=== PATIENT | female | born 1970 | race Caucasian/White ===

== ENCOUNTER 2016-11-18 04:01 | Emergency (ER) | payer OTHER ==
--- NOTE | ~2016-11-18 | CR72 ---
[facility] A Service of [facility] RADIOLOGY TEXT RESULTS PATIENT: SHAKEEL STAPLETON LOCATION: SED : 68 UNIT #: [id number] AGE: [address]: Unruly Monroy MD SEX: F ORDER DR: [id number] [place] [address] [id number] E MR#: [id number] Acc #: [id number] NAME: SHAKEEL STAPLETON : 1970 SEX: F STUDY DATE/TIME: 11/18/2016 UNIT: SED ROOM: STUDY DESCRIPTION: CR Chest Single View Portable Attending Physician: Unruly Monroy M.D. Ordering Physician: Unruly Monroy M.D. Primary Care Physician: Ellyn Alfaro M.D. MEDICAL IMAGING REPORT This report is preliminary unless electronic signature is present. EXAM Portable chest 11/18 at 05:26 INDICATIONS Acute onset chest pain 1 hour ago. COMPARISON 07/13/2016 FINDINGS A single AP portable view of the chest shows both lungs to be clear. The heart is normal in size. The mediastinal contour is normal. No significant bone abnormalities are seen. IMPRESSION Normal portable chest. Dictated by... Thad Cates Jr., M.D. THIS IS AN ELECTRONICALLY VERIFIED REPORT Thad Cates Jr., M.D. at 11/19/2016 5:53 AM RLK/anil TD: 11/18/2016 08:07 JOB #: [id number] MEDICAL IMAGING REPORT [facility] A Service of [facility] RADIOLOGY TEXT RESULTS PATIENT: SHAKEEL STAPLETON LOCATION: SED : 68 UNIT #: [id number] AGE: [address]: Unruly Monroy MD SEX: F ORDER DR: Page 1 of 1
--- NOTE | ~2016-11-18 | EKG ---
PATIENT: SHAKEEL STAPLETON UNIT #: [id number] Ventricular Rate: 70 BPM Atrial Rate: 70 BPM P-R Interval: 136 ms QRS Duration: 98 ms Q-T Interval: 382 ms QTC Calculation(Bezet): 412 ms P [place]: 78 degrees Calculated R [place]: 37 degrees Calculated T [place]: 34 degrees Diagnosis Line: Normal sinus rhythm with sinus arrhythmia Diagnosis Line: Normal ECG Diagnosis Line: No previous ECGs available Diagnosis Line: Confirmed by ARNOL SHARP MD ([id number]) on 11/20/2016 Diagnosis Line: 10:20:20 AM INTERPRETING MD: LILA MCCOY
--- NOTE | ~2016-11-18 | CT2 ---
[facility] A Service of [facility] RADIOLOGY TEXT RESULTS PATIENT: SHAKEEL STAPLETON LOCATION: SED : 68 UNIT #: [id number] AGE: [address]: Unruly Monroy MD SEX: F ORDER DR: [id number] [place] [id number] E MR#: [id number] Acc #: [id number] NAME: SHAKEEL STAPLETON : 1970 SEX: F STUDY DATE/TIME: 11/18/2016 6:04 UNIT: SED ROOM: STUDY DESCRIPTION: CT Abd and Pelv W Cont Attending Physician: Unruly Monroy M.D. Ordering Physician: Unruly Monroy M.D. Primary Care Physician: Ellyn Alfaro M.D. MEDICAL IMAGING REPORT This report is preliminary unless electronic signature is present. EXAM CT abdomen and pelvis with contrast HISTORY 46-year-old female chest pain for 1 hour prior to admission. Took 4 nitroglycerin with no relief, now complains of abdominal pain right upper quadrant pain, diarrhea. COMPARISON CT abdomen and pelvis, 11/03/[address] exam was performed with one or more of the following radiation dose reduction techniques: automatic exposure control, adjustment of mA and/or kV according to patient size, and iterative reconstruction. FINDINGS Axial images performed through the abdomen and pelvis following IV contrast. Sagittal and coronal reconstructed images reviewed at a workstation. ABDOMEN: The lung bases are unremarkable. The liver and spleen appear normal. The gallbladder is contracted with multiple hyperdensities in the gallbladder compatible with stones. The pancreas, kidneys and adrenal glands are unremarkable. No free air or free fluid. Visualized GI tract, to include the appendix, unremarkable. Retroperitoneum unremarkable. PELVIS: The bladder is mildly distended. The uterus and adnexa unremarkable. Osseous structures appear normal. There is a small fat-containing umbilical hernia. IMPRESSION 1. No acute intraabdominal or intrapelvic pathology. [facility] A Service of [facility] RADIOLOGY TEXT RESULTS PATIENT: SHAKEEL STAPLETON LOCATION: SED : 68 UNIT #: [id number] AGE: [address]: Unruly Monroy MD SEX: F ORDER DR: 2. Uncomplicated cholelithiasis. Dictated by... Beatrice Nieves M.D. THIS IS AN ELECTRONICALLY VERIFIED REPORT Beatrice Nieves M.D. at 11/18/2016 3:31 PM HOLLEY/charlie TD: 11/18/2016 08:14 JOB #: [id number] MEDICAL IMAGING REPORT Page 1 of 1
[2016-11-18] MEDS ORDERED: LISINOPRIL PO (04:19)
[2016-11-18] MEDS ORDERED: VENLAFAXINE PO (04:20)
[2016-11-18] MEDS ORDERED: NITROGLYCERIN PO (04:20)
[2016-11-18 04:26] LABS: BASOPHIL# 0.2 X10e3 (0-0.3); BASOPHIL% 1.4 % (0-2.5); DIFF IND NO; EOSINOPHIL# 0.4 X10e3 (0-0.7); EOSINOPHIL% 3.6 % (0.0-7.0); HEMATOCRIT 39.6 % (35.0-45.0); HEMOGLOBIN 13.6 gm/dL (12.0-16.0); LYMPHOCYTE# 3.5 X10e3 (1.0-3.5); LYMPHOCYTE% 30.4 % (17.0-45.0); MEAN CELL VOLUME 89.2 FL (83-96); MEAN CORPUSCULAR HEMOGLOBIN 30.7 PG (28-34); MEAN CORPUSCULAR HGB CONC 34.4 g/dL (30-36); MEAN PLATELET VOLUME 7.3 FL (6.5-11.5); MONOCYTE# 0.8 X10e3 (0-1.0); MONOCYTE% 7.1 % (3.0-12.0); NEUTROPHIL# 6.6 X10e3 (1.5-7.1); NEUTROPHIL% 57.5 % (40-75); PLATELET COUNT 302 X10e3 (140-420); RED BLOOD COUNT 4.43 X10e (3.90-5.30); RED CELL DISTRIBUTION WIDTH 13.7 % (11.0-15.5); WHITE BLOOD COUNT 11.4 X10e3 (4.0-10.5)
[2016-11-18 04:28] LABS: INR 0.9; PROTHROMBIN TIME (PATIENT) 10.7 SECONDS (9.5-12.4)
[2016-11-18 04:31] LABS: POC - CKMB <1.0 ng/mL (0.0-7.9); POC - TROPONIN <0.05 ng/mL (<=0.05)
[2016-11-18 04:36] LABS: PARTIAL THROMBOPLASTIN TIME 24.1 SECONDS (25.6-38.1)
[2016-11-18 04:38] LABS: ALBUMIN SERUM 4.2 g/dL (3.5-5.0); BILIRUBIN, DIRECT 0.1 mg/dL (0.0-0.2); BILIRUBIN,TOTAL 0.1 mg/dL (0.2-2.0); BUN/CREATININE RATIO 22.85; CALCIUM SERUM 8.8 mg/dL (8.4-10.2); CREATININE SERUM 0.7 mg/dL (0.6-1.4); GLOM FILT RATE Estimated 103.2 mL/min (>60); POTASSIUM 3.4 mmol/L (3.5-5.1); PROTEIN TOTAL SERUM 7.3 g/dL (6.0-8.3)
[2016-11-18 07:09] LABS: POC - CKMB <1.0 ng/mL (0.0-7.9); POC - TROPONIN <0.05 ng/mL (<=0.05)
[2016-11-19] MEDS ORDERED: LISINOPRIL30 MG PO (10:28)
[2016-11-19] MEDS ORDERED: EFFEXOR75 M3 PO (10:29)
== END 2016-11-18 07:40 | disposition home or self-care (01) ==
LOC: SED 04:01
PROVIDERS: Emergency Medicine
DX: K80.50 Calculus of bile duct without cholangitis or cholecystitis without obstruction (principal); Z88.1 Allergy status to other antibiotic agents
CPT/HCPCS: 71010; 74177; 80048; 80076; 82553; 83690; 84484; 85025; 85610; 85730; 93005; 96374; 99284; Q9967

== ENCOUNTER → 2016-11-21 | Day surgery (SDC) | payer OTHER ==
[~2016-11-21] MED LIST: EFFEXOR75 M3 PO; LISINOPRIL PO; LISINOPRIL30 MG PO; NITROGLYCERIN PO; VENLAFAXINE PO
--- NOTE | ~2016-11-21 | EKG ---
PATIENT: SHAKEEL STAPLETON UNIT #: [id number] Ventricular Rate: 77 BPM Atrial Rate: 77 BPM P-R Interval: 156 ms QRS Duration: 104 ms Q-T Interval: 382 ms QTC Calculation(Bezet): 432 ms P [place]: 58 degrees Calculated R [place]: 38 degrees Calculated T [place]: 32 degrees Diagnosis Line: Normal sinus rhythm Diagnosis Line: Normal ECG Diagnosis Line: When compared with ECG of 18-NOV-2016 04:04, Diagnosis Line: No significant change was found Diagnosis Line: Confirmed by ANKITA JONES MD ([id number]) on Diagnosis Line: 11/22/2016 4:25:27 PM INTERPRETING MD: ROBERT MCCOY
--- NOTE | ~2016-11-21 | OR ---
Unit #: [id number] #: [id number] Patient: SHAKEEL STAPLETON [id number] [address] [address] [id number] O MR#: [id number] NAME: SHAKEEL STAPLETON. ROOM: Date of Procedure: 11/21/2016 Admission Date: 11/21/2016 Surgeon: Unruly Amaya M.D. : 1970 Attending Physician: Unruly Amaya M.D. Primary Care Physician: Ellyn Alafro M.D. OPERATIVE REPORT PREOPERATIVE DIAGNOSIS Chronic cholecystitis. POSTOPERATIVE DIAGNOSIS Chronic cholecystitis. PROCEDURE PERFORMED Laparoscopic cholecystectomy. ASSISTANT Doulgas Meraz M.D. ANESTHESIA General endotracheal anesthesia. ESTIMATED BLOOD LOSS Minimal. IV FLUIDS 800 crystalloid. COMPLICATIONS None. INDICATIONS FOR PROCEDURE The patient is a 46-year-old with chronic cholecystitis. DESCRIPTION OF PROCEDURE The patient was taken to the operating theater and placed in supine position. General anesthesia was induced. Abdomen was prepped and draped. A 5-mm Optiview trocar was placed in the right upper quadrant without difficulty. The abdomen was insufflated to 15 mmHg with CO2. Under direct vision, I placed a subxiphoid 10 mm, right lateral 5 mm, umbilical 5 mm. General inspection of the abdomen revealed adhesions to the gallbladder consistent with chronic cholecystitis. The gallbladder was retracted up over the liver. I dissected the neck of the gallbladder and identified the cystic duct. Its junction with the gallbladder was clearly identified. I then skeletonized, doubly hemoclipped, and divided. The cystic artery laid immediately posterior. This was skeletonized, doubly hemoclipped, and divided. The gallbladder was removed from the gallbladder bed with Bovie electrocautery and delivered via the subxiphoid port. Hemostasis was adequate. I removed the ports under direct vision Unit #: [id number] #: [id number] Patient: SHAKEEL STAPLETON with no evidence of abdominal hemorrhage. The fascia was closed with 0 Vicryl and skin with 4-0 Vicryl. The patient tolerated the procedure well and sent to recovery room in good condition. Dictated by... Garry Pradhan/modl TD: 11/21/2016 23:38 JOB #: [id number] OPERATIVE REPORT Page 1 of 1 X Unruly Amaya MD PROCEDURE OPERATIVE NOTE
[2016-11-21 10:15] LABS: ALBUMIN SERUM 4.2 g/dL (3.5-5.0); BILIRUBIN,TOTAL 0.5 mg/dL (0.2-2.0); BUN/CREATININE RATIO 13.33; CALCIUM SERUM 8.7 mg/dL (8.4-10.2); CREATININE SERUM 0.9 mg/dL (0.6-1.4); GLOM FILT RATE Estimated 76.2 mL/min (>60); POTASSIUM 3.7 mmol/L (3.5-5.1); PROTEIN TOTAL SERUM 7.6 g/dL (6.0-8.3)
== END | disposition home or self-care (01) ==
LOC: CSUR 09:01
PROVIDERS: Surgery
PROC: 0FT44ZZ Resection of Gallbladder, Percutaneous Endoscopic Approach (ICD-10-PCS; principal; 2016-11-21 12:00)
DX: K80.10 Calculus of gallbladder with chronic cholecystitis without obstruction (principal); I10 Essential (primary) hypertension; R74.8 Abnormal levels of other serum enzymes; R74.0 Nonspecific elevation of levels of transaminase and lactic acid dehydrogenase [LDH]; F41.9 Anxiety disorder, unspecified; D64.9 Anemia, unspecified; Q24.9 Congenital malformation of heart, unspecified; E53.8 Deficiency of other specified B group vitamins; R07.9 Chest pain, unspecified; R68.82 Decreased libido; R53.83 Other fatigue; L71.9 Rosacea, unspecified; Z87.09 Personal history of other diseases of the respiratory system; Z79.899 Other long term (current) drug therapy; Z88.1 Allergy status to other antibiotic agents; Z82.61 Family history of arthritis; Z82.49 Family history of ischemic heart disease and other diseases of the circulatory system; Z83.3 Family history of diabetes mellitus; Z80.3 Family history of malignant neoplasm of breast
CPT/HCPCS: 80053; 84703; 88304; 93005; J0330; J0690; J1100; J1644; J2250; J2270; J2765

== ENCOUNTER → 2017-01-29 | Outpatient (CLI) | payer OTHER ==
--- NOTE | ~2017-01-29 | MY24 ---
[facility] A Service of [facility] RADIOLOGY TEXT RESULTS PATIENT: SHAKEEL STAPLETON LOCATION: [facility] : [birth year] UNIT #: [id number] AGE: [address]: Ellyn Alfaro MD SEX: F ORDER DR: [id number] [facility] [address] [place], [place] [address] [id number] O MR#: [id number] Acc #: [id number] NAME: SHAKEEL STAPLETON. : 1970 SEX: F STUDY DATE/TIME: 01/29/2017 9:10 UNIT: [facility] ROOM: STUDY DESCRIPTION: ÁLVARO IBARRA W/ CAD UNI LT Attending Physician: Ellyn Alfaro M.D. Referring Physician: Ellyn Alfaro M.D. Ordering Physician: Ellyn Alfaro M.D. Primary Care Physician: Ellyn Alfaro M.D. MEDICAL IMAGING REPORT This report is preliminary unless electronic signature is present EXAM Unilateral left digital diagnostic mammogram with CAD and targeted left breast ultrasound 01/29/2017 INDICATION 46-year-old female complaining of soreness in the left breast for 2-3 weeks. Soreness when she applies pressure to the breast. She denies a palpable abnormality. No personal history of breast cancer. Family history positive in a maternal grandmother. No surgeries. TECHNIQUE CC, MLO and true lateral views of the left breast were obtained and reviewed with an FDA-approved CAD device. COMPARISON 03/19/2016, 12/02/2013. Targeted ultrasound was also performed. FINDINGS Breast parenchyma is heterogeneously dense. This degrades sensitivity of screening mammography. The pattern is unchanged. There is no new dominant nodule, mass or suspicious cluster of microcalcifications. A radiopaque marker indicates the area of patient pain symptoms on the left. Deep to the marker, there is no mammographic abnormality. Targeted ultrasound was thereafter performed. ULTRASOUND LEFT BREAST: The patient was initially scanned independently by the technologist and then rescanned in my presence. Imaging of the area of patient pain symptoms on the left was performed from the 2 o'clock to the 4 o'clock positions. Imaging is negative with the exception of a benign cyst or coalescence of ducts in the 3 o'clock position left breast spanning a distance of about 5 mm. The cyst is included within or adjacent to dense breast tissue concordant with mammography imaging. [facility]. [facility] A Service of [facility] RADIOLOGY TEXT RESULTS PATIENT: SHAKEEL STAPLETON LOCATION: [facility] : [birth year] UNIT #: [id number] AGE: [address]: Ellyn Alfaro MD SEX: F ORDER DR: Absent new or worsening symptoms in either breast, return to an annual screening regimen is recommended. Findings and recommendations were discussed with the patient. She voiced understanding and agreement. IMPRESSION Benign diagnostic mammogram and targeted left breast ultrasound. Incidental coalescence of ducts versus a small cyst at 3 o'clock in the left breast only identified with ultrasound. Return to an annual screening regimen is recommended. See discussion above. Patients over the age of 40 are entered into a reminder system with target due date for the next mammogram. A result letter will also be sent to the patient. BIRADS: 2 Benign finding Dictated by... Cesar Barreto M.D. THIS IS AN ELECTRONICALLY VERIFIED REPORT Cesar Barreto M.D. at 01/29/2017 5:12 PM MARC/eric TD: 01/29/2017 12:05 JOB #: [id number] MEDICAL IMAGING REPORT Page 1 of 1 COPY
--- NOTE | ~2017-01-29 | US24 ---
[facility] A Service of [facility] RADIOLOGY TEXT RESULTS PATIENT: SHAKEEL STAPLETON LOCATION: [facility] : [birth year] UNIT #: [id number] AGE: [address]: Ellyn Alfaro MD SEX: F ORDER DR: [id number] [facility] [address] [place], [place] [address] [id number] O MR#: [id number] Acc #: [id number] NAME: SHAKEEL STAPLETON : 1970 SEX: F STUDY DATE/TIME: 01/29/2017 10:03 UNIT: [facility] ROOM: STUDY DESCRIPTION: US Breast Unilateral Attending Physician: Ellyn Alfaro M.D. Referring Physician: Ellyn Alfaro M.D. Ordering Physician: Ellyn Alfaro M.D. Primary Care Physician: Ellyn Alfaro M.D. MEDICAL IMAGING REPORT This report is preliminary unless electronic signature is present EXAM Targeted ultrasound left breast, 01/29/2017 HISTORY FINDINGS Please refer to diagnostic mammogram left breast for this dictation. Patients over the age of 40 are entered into a reminder system with target due date for the next mammogram. A result letter will also be sent to the patient. BIRADS: 2 Benign Finding Dictated by... Cesar Barreto M.D. THIS IS AN ELECTRONICALLY VERIFIED REPORT Cesar Barreto M.D. at 01/30/2017 7:12 AM Lucia TD: 01/29/2017 11:23 JOB #: [id number] MEDICAL IMAGING REPORT Page 1 of 1 COPY
== END | disposition home or self-care (01) ==
LOC: CMAM 08:30
DX: N64.4 Mastodynia (principal)
CPT/HCPCS: 76641; G0206